=== PATIENT | female | born 1945 | race Caucasian/White ===

== ENCOUNTER 2023-05-16 13:03 | Emergency (ER) | payer MEDICARE, MEDICAID ==
[~2023-05-16] VITALS: Ht 149.9 cm; Wt 52.5 kg
[2023-05-16] MEDS ORDERED: ONDANSETRON HCL 4MG/2ML INJ IV STA (13:41)
[2023-05-16] MEDS ORDERED: SODIUM CHLORIDE 0.9% 500 ML IV ONE (13:45)
[2023-05-16] MEDS ORDERED: FAMOTIDINE 20MG/2ML VIAL IV ONE (13:45)
[2023-05-16 14:07] LABS: BASOPHILS % 1.1 % (0.0-2.0); EOSINOPHILS % 1.7 % (0.0-5.0); HEMATOCRIT. 42.2 % (36.0-48.0); MEAN CORPUSCULAR VOLUME 84.1 fL (81.0-99.0); MEAN PLATELET VOLUME 9.7 fl (7.4-10.4); MONOCYTES % 7.2 % (2.0-8.0); PLATELET 271 x1000/uL (130-400); RED BLOOD CELL COUNT 5.02 mill/uL (4.2-5.4); RED CELL DISTRIBUTION WIDTH 16.3 % (11.6-14.6)
[2023-05-16 14:10] LABS: CHLORIDE 101 mEq/L (98-107)
[2023-05-16 14:14] LABS: PROTHROMBIN TIME 11.1 sec (9.6-11.0)
[2023-05-16] MEDS ORDERED: IPRATROPIUM/ALBUTEROL 0.5-3(2.5)MG/3ML NEB HHN ONE (14:30)
[2023-05-16] MEDS ORDERED: KCL 10MEQ/50ML PREMIX 50 ML IV ONE (14:30)
[2023-05-16] MEDS ORDERED: POTASSIUM CHLORIDE 20MEQ TABLET SR PO ONE (14:30)
[2023-05-16] MEDS ORDERED: MAGNESIUM OXIDE 400MG TABLET PO SCH (14:30)
[2023-05-16 14:43] VITALS: PULSE 71; RESP 18; O2SAT 99
[2023-05-16 15:56] LABS: COLOR URINE YELLOW (YELLOW); KETONES URINE TRACE (NEGATIVE); LEUKOCYTE ESTERASE URINE NEGATIVE (NEGATIVE); NITRITE URINE NEGATIVE (NEGATIVE); OCCULT BLOOD URINE NEGATIVE (NEGATIVE); PROTEIN URINE 1+ (NEGATIVE); SPECIFIC GRAVITY URINE 1.011 (1.005-1.030); UROBILINOGEN URINE 0.2 E.U./dL (0.2-1.0)
[2023-05-16] MEDS ORDERED: AZIT250T12 MT (16:27)
[2023-05-16] MEDS ORDERED: P50 MT (16:27)
[2023-05-16] MEDS ORDERED: AMOX1TAB16 MT (16:27)
[2023-05-16] MEDS ORDERED: AMOXICILLIN/POTASSIUM CLAVULANATE 875/125MG TAB PO ONE (16:30)
[2023-05-16] MEDS ORDERED: PREDNISONE 20MG TABLET PO ONE (16:30)
[2023-05-16] MEDS ORDERED: AZITHROMYCIN 500 MG TABLET PO ONE (16:30)
[2023-05-16 16:40] VITALS: BP 152/50; PULSE 68; RESP 17; TEMP 98.8
[2023-05-16 16:48] LABS: CLARITY URINE HAZY (CLEAR)
== END 2023-05-16 17:00 | disposition home or self-care (01) ==
LOC: ER 14:13
DX: R11.2 Nausea with vomiting, unspecified (principal); T50.995A Adverse effect of other drugs, medicaments and biological substances, initial encounter; J44.9 Chronic obstructive pulmonary disease, unspecified; J18.9 Pneumonia, unspecified organism; Z20.822 Contact with and (suspected) exposure to COVID-19
CPT/HCPCS: 99285; 96374; 71045; 96361; 96375; 87426; 80053; 81003; 83880; 83690; 85025; 85610; 84484; 87804 ×2; 36415; 94640; 93005; J7512; J3490; J2405; J3480; J7040; C9803